=== PATIENT | female | born 1950 | race Caucasian/White ===

== ENCOUNTER 2016-12-17 05:38 | Day surgery (SDC) | payer MEDICARE, OTHER ==
--- NOTE | 2016-12-13 10:03 | PREOPHP ---
DATE OF ADMISSION: 12/17/2016 PREOPERATIVE INTERNAL MEDICINE CONSULTATION AND MEDICAL HISTORY AND PHYSICAL Patient is to have surgery with Dr. Marshall Han on 12/17/2016. Consultation requested by Dr. Marshall Han for medical evaluation and clearance of a 66-year-old woman about to undergo surgery on her left eye. Thank you, Dr. Han, for allowing us to participate in the care of this patient. HISTORY OF PRESENT ILLNESS: Marissa Finn is a 66-year-old woman who prior to this had a cataract done on her right eye, currently being admitted for cataract extraction and lens implantation on her left eye. PRIOR SURGICAL HISTORY: She has had a hysterectomy, had a lumpectomy and radiation therapy for canc er of the breast and had an appendectomy. She was admitted medically for a fever of undetermined or igin and ultimately was diagnosed with an autoimmune disorder. Her medical problems include the fol lowin. Diabetes mellitus type 2. 2. Hyperlipidemia. 3. Rheumatoid arthritis. 4. Osteopenia. 5. Diabetes mellitus type 2. CURRENT MEDICATIONS: Include the followin. Metformin 2000 mg a day. 2. Protonix 40 mg a day. 3. Folic acid. 4. Methotrexate once a week. 5. A variety of other p.r.n. medications. ALLERGIES: SHE IS NOT ALLERGIC TO ANY MEDICATIONS. PAST SURGICAL HISTORY: She has not broken any bones. SOCIAL HISTORY: The patient is a , has no children. She does not smoke. Alcohol socially. S he does drink coffee. Usually has no difficulty sleeping at night. FAMILY HISTORY: Both parents are . Father at age 89, with heart and blood pressure is sues. Mother at age 83 of breast cancer, did have dementia. One sister has of darrell ast cancer. There is a family history of diabetes, heart disease, cancer, hypertension, and stroke. There is also a distant relative who has multiple myeloma. REVIEW OF SYSTEMS HEENT: Periodic headaches. CARDIORESPIRATORY: Denies any chest pain or shortness of breath. GASTROINTESTINAL: No melena or hematemesis. GENITOURINARY: No urgency or frequency. GYNECOLOGIC: Post hysterectomy. MUSCULOSKELETAL: Unremarkable. NEUROPSYCHIATRIC: Unremarkable. GENERAL HEALTH: As above. PHYSICAL EXAMINATION: VITAL SIGNS: The patient's blood pressure was 128/60, pulse was 88 and regular, respirations were 1 8, temperature 98.6. Height 5 feet 1 inch, weight 124 pounds. GENERAL: The patient was noted to be a well-developed, well-nourished white female, alert and coope rative, in no apparent acute distress, oriented to time, place, and person. HEAD, EARS, EYES, NOSE AND THROAT: Head was atraumatic. Eyes: Pupils were equal, reactive to ligh t and accommodation. Fundi were benign. Tympanic membranes were unremarkable. Nose was negative. Mouth was unremarkable. Fair oral hygiene was present. NECK: Supple, without any rigidity. Trachea was midline. Thyroid was unremarkable. Neck veins we re flat. Carotid pulses were equal. No bruits were heard. BACK EXAM: Unremarkable. CHEST: Symmetrical. Breasts and axillary exam: Lumpectomy noted, right breast, and some scarring. No obvious masses were palpable. LUNGS: Clear to percussion and auscultation. HEART: PMI is fifth intercostal space at the midclavicular line. Regular sinus rhythm was noted. No significant murmurs, rubs, or gallops being elicited. ABDOMEN: Soft, good bowel sounds were noted. No significant organomegaly, masses, or tenderness. GENITALIA: Normal female external genitalia. Pelvirectal exam status post hysterectomy, otherwise no rectal or adnexal masses being palpable. EXTREMITIES: Did not reveal any clubbing, edema or cyanosis. Peripheral pulses were physiologic. SKIN: Moist and warm, without any eruptions. No gross lymphadenopathy was noted. NEUROLOGIC EXAM: Grossly intact. IMPRESSION: 1. Cataract, left side. 2. Breast cancer, status post lumpectomy. 3. Hyperlipidemia. 4. Diabetes mellitus type 2. 5. GERD. 6. Rheumatoid arthritis. 7. Osteoporosis. 8. Diabetes mellitus type 2. DISCUSSION: Review of laboratory and other data revealed the following: The patient's chemistry pa dieter, electrolytes were normal. Glucose was 138, BUN, creatinine and liver function tests were tashi l. Lipids were elevated and borderline level. Iron was low at 19. Hemoglobin A1c was 6.9. TSH wa s borderline at 5.10. CBC, sed rate, UA, PT, PTT were within acceptable limits. The patient's EKG did not reveal any acute changes. X-ray done 3 months ago was basically unremarkable. Dr. Han, I see no contraindication in this patient undergoing the current proposed surgery unde r the desired form of anesthesia and feel she is a suitable candidate at this particular point in ti me. Thank you again, Dr. Han, for allowing us to participate in the care of this patient. Dictated By: MARCUS ALLEN/ROSETTE Conf#: [id number] DID#: [id number]
[2016-12-16 16:23] VITALS: BMI 22.5
[2016-12-17] VITALS (9 sets, daily range): BP systolic 103–139; BP diastolic 57–73; PULSE 74–93; RESP 9–20; Ht 154.9 cm; Wt 55.9 kg
[~2016-12-17] VITALS: Ht 154.9 cm; Wt 55.9 kg
[~2016-12-17 05:38] MED LIST: ASPI81TA3 PO; BIOT25004 PO; CITRACAL PO; FOLI-49 PO; MAGN100T6 PO; MET25 PO; METF-382 PO; MULT-542 PO; PANT40TA4 PO
[2016-12-17] MEDS ORDERED: DICLOFENAC 0.1% 2.5 ML OPH OPER SCH (06:00)
[2016-12-17] MEDS ORDERED: CIPROFLOXACIN 0.3% 2.5 ML OPH OPER SCH (06:00)
[2016-12-17] MEDS ORDERED: CYCLOPENTOLATE/PHENYLEPH 2 ML OPH OPER SCH (06:00)
[2016-12-17] MEDS ORDERED: TROPICAMIDE 1% 2 ML OPH OPER SCH (06:00)
[2016-12-17] MEDS ORDERED: LIDOCAINE 4% (MPF) 5 ML INJ ONE (06:57)
[2016-12-17] MEDS ORDERED: MOXIFLOXACIN 0.5% 3 ML OPH ONE (06:58)
[2016-12-17] MEDS ORDERED: HYALURONATE/CHONDROITIN 1ML OPH INJ ONE (06:58)
[2016-12-17] MEDS ORDERED: TETRACAINE 0.5% 15 ML OPH ONE (06:58)
[2016-12-17] MEDS ORDERED: CEFAZOLIN 1 GM INJ ONE (06:58)
[2016-12-17] MEDS ORDERED: EPINEPHrine 1 MG INJ ONE (06:58)
[2016-12-17] MEDS ORDERED: GENTAMICIN 80 MG INJ ONE (06:58)
[2016-12-17] MEDS ORDERED: CARBACHOL 0.01% 1.5 ML OPH INJ ONE (06:58)
[2016-12-17] MEDS ORDERED: LIDOCAINE 1% (MPF) 10 ML INJ ONE (06:58)
[2016-12-17] MEDS ORDERED: DEXAMETHASONE 4 MG/ML 1 ML INJ ONE (06:58)
--- NOTE | 2016-12-17 07:24 | HPN ---
Date/Time of Note Date/Time of Note DATE: 12/17/16 TIME: 07:23 Interval H&P Admission Note Pt. seen H&P reviewed: No system changes AUGUSTO JOY MD Dec 17, 2016 07:23
[2016-12-17] MEDS ORDERED: FENTAnyl 50 MCG/ML VIAL ONE (07:33)
[2016-12-17] MEDS ORDERED: ONDANSETRON 4 MG INJ IV PRN (08:00)
[2016-12-17] MEDS ORDERED: DIPHENHYDRAMINE 50 MG INJ IV PRN (08:00)
[2016-12-17] MEDS ORDERED: FENTAnyl 50 MCG/ML VIAL IV PRN ×2 (08:00)
[2016-12-17] MEDS ORDERED: MEPERIDINE 25 MG INJ IV PRN (08:00)
[2016-12-17] MEDS ORDERED: METOCLOPRAMIDE 10 MG INJ IV PRN (08:00)
[2016-12-17] MEDS ORDERED: LIDOCAINE 2% (SDV) 5 ML INJ ONE (08:28)
[2016-12-17] MEDS ORDERED: PROPOFOL 20 ML ONE (08:28)
--- NOTE | 2016-12-17 09:38 | OPR ---
DATE OF OPERATION: 12/17/2016 PREOPERATIVE DIAGNOSIS: Cataract, left eye. POSTOPERATIVE DIAGNOSIS: Cataract, left eye. OPERATION PERFORMED: Cataract extraction with lens implant, left eye. SURGEON: Augusto Han MD ANESTHESIA: Local standby. ANESTHESIOLOGIST: Dr. Lester. PROCEDURE: The patient was brought to the operating room and placed on the table with an IV in plac e and the patient attached to an satellite project site monitor. Oxygen was given via face mask. After some intravenous sedation was administered, local anesthesia was given using Xylocaine 2% with epinephrine, mixed with Marcaine 0.5%. This was given in a lid block and retrobulbar injection. The patient was then prepped and draped in the usual sterile manner. A wire lid speculum was inserted between the lids of the left eye. A Superblade was used to enter th e anterior chamber at the corneoscleral limbus at the 10:30 o'clock position. A separate incision wa s made using a 3.0-mm keratome which entered the corneoscleral junction at the 12 o'clock position. Through this 3-mm opening, an irrigating cystotome was introduced into the anterior chamber. The kaylynn mber was filled with Viscoat and an anterior capsulotomy was performed. Balanced salt solution was t hen used for hydrodissection of the lens. A phacoemulsification handpiece was then brought into the field and introduced into the anterior chamber. The lens nucleus was emulsified using a deep groove and cracking the nucleus into quadrants. Following this, each quadrant was aspirated and emulsified at the pupillary margin. After this was completed, the irrigation/aspiration handpiece was brought to the field, introduced i nto the posterior chamber, and the lens cortical material was removed. When this was completed, joanne tional Viscoat was injected into the anterior and posterior chambers. The 3-mm opening had its internal lips enlarged, and then the posterior chamber intraocular lens papito suring 20.5 diopters (Bausch and Lomb model LI61AO) was then injected into the posterior chamber usi ng the lens injector system. After the leading haptic was introduced into the capsular bag and the l ens optic was present in the center of the eye, the injector was removed and the trailing haptic was grasped with non-toothed forceps and introduced into the capsular fold superiorly. A Sinskey hook w as then used to rotate the intraocular lens so that the lips were oriented in the horizontal meridia n. One 10-0 nylon suture was placed across the wound. Prior to tying, the irrigation/aspiration handpiece was reintroduced into the anterior chamber to re move the Viscoat. Miochol was instilled to constrict the pupil, and then the 10-0 nylon suture was t ied. The ends were cut short and then the knot was buried. Then, 0.5 mL of dexamethasone and 0.5 mL of Ancef were injected into the sub-Tenon space in the infe rior fornix. Ciloxan drops were then placed on the surface of the eye. The speculum was removed and a patch was applied. The patient then left the operating room in satisfactory condition. Dictated By: AUGUSTO CORONA/ROSETTE Conf#: [id number] DID#: [id number]
== END 2016-12-17 09:40 | disposition home or self-care (01) ==
LOC: SDS 05:38
PROVIDERS: ATTEND Ophthalmology
DX: H26.9 Unspecified cataract (principal); E11.9 Type 2 diabetes mellitus without complications; E78.5 Hyperlipidemia, unspecified; Z85.3 Personal history of malignant neoplasm of breast; M06.9 Rheumatoid arthritis, unspecified; M81.0 Age-related osteoporosis without current pathological fracture
CPT/HCPCS: 66984; 82962; J0171; J0690; J1100; J1580; J3010; V2632